=== PATIENT | female | born 1990 | race Caucasian/White ===

== ENCOUNTER → 2018-06-29 17:10 | Observation (INO) ==
--- NOTE | 2018-06-29 14:04 | OB/GYN History & Physical ---
Date of Encounter: 06/29/18 Time of Encounter: 13:56 Assessment and Plan (1) 30 weeks gestation of Current visit: Yes Status: Acute (2) Sepsis Current visit: Yes Status: Acute MFM at [facility] Dr. Marie consulted for possible transfer. Per MFM ok for transfer once BP's stable, echo complete, and cleared by medicine for transport. Pt is to get Vancomycin and Zosyn as soon as possible for possible sepsis. Pt now s/p 3 liters NS. Vancomycin in. Zosyn started. Echo normal. LE dopplers normal. Transfer to [facility] triage. POC per MFM, Dr. Harrison, and pulmonology. Qualifiers: Sepsis type: sepsis due to unspecified organism Qualified Code(s): A41.9 - Sepsis, unspecified organism (3) Polysubstance abuse Current visit: Yes Status: Acute (4) Tobacco abuse Current visit: Yes Status: Acute (5) Hepatitis C Current visit: Yes Status: Acute Qualifiers: Viral hepatitis chronicity: chronic Hepatic coma status: without hepatic coma Qualified Code(s): B18.2 - Chronic viral hepatitis C (6) uterine contractions in third trimester, antepartum Current visit: Yes Status: Acute Contractions every 3-4 minutes. SVE 1/70/-1 upon arrival. Repeat SVE x2 unchang ed. MFM at [facility] Dr. Marie consulted for possible transfer. Per MFM ok for transfer once BP's stable, echo complete, and cleared by medicine for transport. Pt is to get Vancomycin and Zosyn as soon as possible for possible sepsis. History of Present Illness Chief complaint: contractions HPI: Ms. Narvaez is a 27 year old female presenting at 30w6d with c/o contractions. She reports using heroin and methamphetamine last evening. Since that time she has had "cotton fever." She has been feeling feverish with shortness of breath, having shaking, and chest pressure, and inability to move her legs. This am she is also feeling dizzy and is having regular contractions. She denies leaking or bleeding. She reports a history of blood clots but is unsure if she has ever been on any anticoagulants. She does use tobacco as well. She states she has been unable to walk and therefore her girlfriend and her sister had to carry her to the car to come to the hospital. This is complicated by homelessness, hepatitis C, tobacco and polysubstance abuse. She reports she was trying to get in the baby centered recovery program but after her kicked her out of the house she did not have transportation to her appointments. The admits to trading sex for drugs in the past and she does not know who the father of this baby is. She denies any complications with her 2 full term pregnancies or deliveries. She had a 17 week SAB when she was in jail. She does report frequent UTI's in her previous pregnancies. 19 week Ultrasound: Single live male fetus. Position varied. Adequate fluid Post plac Bilat ov WNL AUA 19 W 2 D TASH 09/01/18 EFW 9 oz +FHR 147 No gross anomalies seen at this time. Initial labs: B positive Rubella and varicella immune Hepatitis C VL: [id number] HIV negative Treponema negative Hepatitis B negative Past Med Surg Social Fam HX - Past Medical History Medical history: hepatitis, liver disease (hepatitis C) - Family History Sister Adopted: [place]: Melanie Barker Age: 29 Family Member Ethnicity: Non- Living Status: Still Living Hx Family Cardiac Disorders: No Hx Family Respiratory Disorders: No Hx Family Cancer: No Hx Family GI Disorders: No Hx Family Genitourinary Disorders: No Hx Family Endocrine Disorder: No Hx Family Musculoskeletal Disorders: No Hx Family Neuromuscular Disorders: No Hx Family Neurologic Disorders: No Hx Family HEENT Disorders: No Hx Family Autoimmune Disorders: No Hx Family Reproductive Disorders: No Hx Family Psychosocial Disorders: No Hx Family Medical Disorders: No Obstetrical History - Pregnancies : 4 Para: 2 Term: 2 : 0 Ab's: 1 Livin Review of System OB All systems PM: reviewed and no additional remarkable complaints except as stated Exam - Constitutional Constitutional: well developed, well nourished, moderate distress, disheveled, other - Lungs Respiratory exam: CTAB - Cardiovascular Cardiovascular exam: RRR - Breasts Breast: bilateral: skin changes (multiple lesions from injecting in veins in breasts, no erythema or warmth) - Abdomen Abdomen: Present: gravid, non tender - Extremities Extremities exam: pedal edema (bilateral edema, multiple sores from injecting, areas of erythema around sores), radial pulses palpable and symmetrical Deep Tendon Reflex Grade: 1+ Diminished - Vulva Vulva: bilateral: normal - Vagina Vagina: Present: normal moisture - Cervix Dilation: 1 Effacement: 70 Station: -1 - Anus/Rectum Anus/Rectum: Present: normal perianal skin Results Result Diagrams: 06/29/18 13:35 06/29/18 13:35 All other labs normal. - VTE Reasons for not Prescribing Prophylaxis: Treatment not Indicated - Low risk for VTE
[2018-06-29 14:11] LABS: Bilirubin,Urine Small (Negative); Blood,Urine Negative (Negative); Clarity,Urine Cloudy (Clear); Color,Urine Dark Yellow (Yellow); Glucose,Urine (UA) Normal (Normal); Ketones,Urine Trace mg/dL (Negative); Leukocyte Esterase,Urine Negative (Negative); Nitrite,Urine Negative (Negative); Protein,Urine 30 mg/dL (Neg-Trace); Specific Gravity,Urine < 1.005 (1.010-1.025); Urobilinogen,Urine Normal (Normal)
[2018-06-29 14:13] LABS: Bacteria,Urine None Seen per hpf (None-Few); Hyaline Casts,Urine None Seen per lpf (None-Few); RBC,Urine 0-3 per hpf (0-3); Squamous Epithelial Cell,Urine Many per lpf (None-Few); WBC,Urine 0-3 per hpf (0-3)
[2018-06-29 14:15] LABS: ABG Base Excess -6 mEq/L (-2 to 3); ABG HCO3 17 mEq/L (21-27); ABG Oxygen Saturation 99 % (95-98); ABG PCO2 24 mmHg (35-45); ABG PH 7.47 pH Units (7.32-7.45); ABG PO2 110 mmHg (85-104); ABG TCO2 18 mEq/L (20-26)
[2018-06-29 14:20] LABS: INR 1.1; Prothrombin Time 12.3 Seconds (9.4-12.1)
[2018-06-29 14:22] LABS: Activated Partial Thrombo Time 33.3 Seconds (26.0-36.0)
[2018-06-29 14:32] LABS: Alanine Aminotransferase 10 Units/L (7-52); Albumin 2.6 g/dL (3.5-5.7); Albumin/Globulin Ratio 0.9 (1.1-2.2); Alkaline Phosphatase 126 Units/L (34-104); Aspartate Amino Transferase 20 Units/L (13-39); BUN/Creatinine Ratio 11 (6-26); Bilirubin,Direct 0.9 mg/dL (0.0-0.2); Bilirubin,Indirect 0.3 mg/dL (0.0-1.2); Bilirubin,Total 1.2 mg/dL (0.3-1.0); Blood Urea Nitrogen 7 mg/dL (6-20); Calcium 7.7 mg/dL (8.6-10.3); Carbon Dioxide 20 mEq/L (23-29); Chloride 104 mEq/L (98-107); Globulin 2.9 g/dL (2.4-3.5); Glucose 118 mg/dL (70-105); Magnesium 1.3 mg/dL (1.6-2.6); Osmolality,Calculated 279 (280-300); Phosphorous 1.7 mg/dL (2.7-4.5); Potassium 3.1 mEq/L (3.5-5.1); Sodium 135 mEq/L (136-145); Total Protein 5.5 g/dL (6.4-8.9); Troponin I < 0.03 ng/mL (< 0.04); eGFR For Non-African Americans > 60 (> 60)
[2018-06-29 14:39] LABS: Amphetamine Screen,Urine Positive ng/mL (Cutoff=1000); Barbiturate Screen,Urine Negative ng/mL (Cutoff=200); Benzodiazepines Screen,Urine Negative ng/mL (Cutoff=200); Cannabinoid Screen,Urine Negative ng/mL (Cutoff = 50); Cocaine Screen,Urine Negative ng/mL (Cutoff= 300); Opiate Screen,Urine Positive ng/mL (Cutoff=300); Phencyclidine Screen,Urine Negative ng/mL (Cutoff=25)
[2018-06-29 15:02] LABS: Basophils % 0.1 %; Mean Corpuscular Volume 89.1 fL (83.0-100.0)
[2018-06-29 15:31] LABS: Hematocrit 29.5 % (35.3-44.9); Hemoglobin 9.6 g/dL (11.5-15.4); Immature Granulocytes % 0.8 % (0-4); Lymphocytes # 0.3 K/mcL (0.6-4.6); Lymphocytes % 2.1 %; Mean Corpuscular HGB Conc 32.5 g/dL (31.6-35.5); Mean Platelet Volume 9.9 fL (9.4-12.4); Monocytes # 0.5 K/mcL (0.0-1.3); Monocytes % 3.4 %; Nucleated Red Blood Cells 0.2 /100 WBC (0); Platelet Count 202 K/mcL (140-400); Red Blood Count 3.31 M/mcL (3.82-4.97); Red Cell Distribution Width 13.4 % (11.5-14.5); Segmented Neutrophils % 93.6 %
--- NOTE | 2018-06-29 15:45 | Pulmonology Consult Note ---
<Chano Howard - Last Filed: 06/29/18 15:56> Date of Encounter: 06/29/18 Time of Encounter: 15:41 Assessment and Plan (1) Sepsis Status: Acute Sepsis, unknown source Presents with hypotension, subjective fever, WBC 14.9, Lactic acid 3.2 Possible sources include pneumonia, abscess, bacteremia in the setting of IVDU The patient does say that she shares and reuses needles She also has recent history of MRSA skin infections, however they appear to have resolved Blood cultures pending Hypotension appears responsive to fluids at this time Recommendations We will bolus one more liter LR, then start aggressive fluid resuscitation There are no obvious need for pressors or central venous access at this time so long as MAP >65 Continue Vancomycin and Zosyn pending blood cultures Repeat lactic acid within 6 hours Blood pressures appear to respond well to fluids at this time, the patient appears stable for transport to [facility] pending acceptance by OB for management of high risk and sepsis. She will need further sepsis workup, likely to include imaging of the spine which can be managed by OB upon transfer. Qualifiers: Sepsis type: sepsis due to unspecified organism Qualified Code(s): A41.9 - Sepsis, unspecified organism (2) 30 weeks gestation of Status: Acute Management per OB (3) Polysubstance abuse Status: Acute History of Polysubstance abuse including methamphetamines and heroin Patient states that she shares needles and reuses Likely source of sepsis (4) Hepatitis C Status: Acute Stable Qualifiers: Viral hepatitis chronicity: chronic Hepatic coma status: without hepatic coma Qualified Code(s): B18.2 - Chronic viral hepatitis C (5) Hypokalemia Status: Acute Recommend PO replacement with 40 mEq Potassium chloride (6) Hypomagnesemia Status: Acute Recommend IV replacement with 1g Mag Sulfate History of Present Illness Consult date: 06/29/18 Requesting physician: Paty Louise Reason for consult: other (sepsis) Chief complaint: Back pain and weakness History of present illness: Ms. Narvaez is a 27-year-old woman 30 week 6 day gravid woman who presents to [facility] labor and delivery department for complaints of low back pain, weakness in her legs, and frequent contractions for several hours duration. The patient does have history of IV drug use, with last use being last evening. The patient apparently woke up this morning experiencing elevated subjective fevers, confusion, severe back pain and stated that she was unable to walk. This is accordance to this refilled by her family. When I spoke with the patient she said that she was feeling confused, and that she did not feel that she could give a very good history. A good amount of her history is provided by her life partner who is in the room as well as her sister who is also present. The patient does apparently use IV drugs, and has a history of using methamphetamines and opiates. Recently, specifically about 1 month ago the patient did have a MRSA infection on her left leg and left breast tissue for which she was treated as an outpatient with antibiotics and the ulcerations did heal for the most part. In addition of this, the patient does complain of one month history of cough with production of dark sputum, which in the past day and a half has changed to a greenish sputum. According to her life partner, these symptoms primarily started approximately 6:30 AM today but progressed until about 12:30 PM at which point she was brought to the hospital. In addition of these symptoms, she said that she is having severe pain in her back and that she was unable to walk. She never extends anything like this before. Nothing seemed to make it any better or worse. There is no radiation of the pain. Since that time she has regained movement of her legs, however she says that she remains mildly confused. She has no other acute complaints at this time. Upon arrival to the labor and delivery unit, the patient was found to be hypotensive with BP 83/45, tachycardic at 116, and afebrile. She had a lactic acid initially of 3.2. She received 2L fluids and pulmonology was consulted for the management of sepsis. Past Med Surg Social Fam HX - Past Medical History Medical history: hepatitis, liver disease (hepatitis C) - Social History Smoking Status: Current every day smoker Packs per day: 1/2 ppd Smokeless Tobacco Status: No Alcohol use: none Drug use: opiates, methamphetamine, IV Drug Use - Family History Sister Adopted: [place]: Melanie Barker Age: 29 Family Member Ethnicity: Non- Living Status: Still Living Hx Family Cardiac Disorders: No Hx Family Respiratory Disorders: No Hx Family Cancer: No Hx Family GI Disorders: No Hx Family Genitourinary Disorders: No Hx Family Endocrine Disorder: No Hx Family Musculoskeletal Disorders: No Hx Family Neuromuscular Disorders: No Hx Family Neurologic Disorders: No Hx Family HEENT Disorders: No Hx Family Autoimmune Disorders: No Hx Family Reproductive Disorders: No Hx Family Psychosocial Disorders: No Hx Family Medical Disorders: No Medications and Allergies Allergy/AdvReac Type Severity Reaction Status Date / Time No Known Allergies Allergy Verified 06/29/18 16:41 All Systems: The remainder of the systems were reviewed and are negative Review of Systems: Constitutional: Denies weight loss. Admits to subjective fevers, generalized fatigue, chills Head/Neck: Denies LAN[place], neck stiffness EENT: Denies vision changes/blurriness, rhinorrhea, congestion, sore throat CVS: Denies chest pain, palpitations, GAMBOA, orthopnea, PND Pulm: Denies SOB, hemoptysis, wheezing. Admits to cough with dark sputum production GI: Denies abdominal pain, nausea, vomiting, diarrhea, constipation, melena, hematemasis : Denies dysuria, increased frequency, urgency, hematuria Heme: Denies ease of bleeding or bruising MSK: Denies joint pain, limited ROM Skin: Denies color changes. Admits to rashes and recent skin infection Neuro: Denies LAN[place]ORD, paresthesias, focal deficits. Admits to weakness and trouble moving legs Physical Examination Gen: Vitals noted. Patient appears mildly distressed. She claims to be mildly confused Eyes: anicteric sclerae, moist conjunctivae; no lid-lag; Pupils equal and reactive to light HENT: Atraumatic; oropharynx clear with moist mucous membranes and no mucosal ulcerations; normal hard and soft palate Neck: Trachea midline; supple, no thyromegaly or lymphadenopathy Cardiac: RRR, questionable faint 1/6 systolic ejection murmur, +S1/S2 Pulmonary: CTA bilaterally, no wheezes, rales or rhonchi, equal chest expansion Abdomen: Gravid patient MSK: ROM intact, no joint swelling noted Extremities: trace BLE edema, nontender calf, no cyanosis or clubbing Skin: Evidence of healed ulcers and infection scattered over all extremities. Healed track schmitz and fresh track schmitz. Neuro: moves all extremities, no focal deficits. Psych: Appropriate mood and behavior. A&Ox3, although she says that she feels disoriented Results - Laboratory Findings CBC and BMP: 06/29/18 13:35 06/29/18 13:35 ABG ABG pH 7.47 pH Units (7.32-7.45) H 06/29/18 14:12 ABG pCO2 24 mmHg (35-45) L 06/29/18 14:12 ABG pO2 110 mmHg (85-104) H 06/29/18 14:12 ABG O2 Saturation 99 % (95-98) H 06/29/18 14:12 PT/INR, D-dimer PT 12.3 Seconds (9.4-12.1) H 06/29/18 13:35 Abnormal lab findings: Abnormal lab results WBC 14.9 K/mcL (4.3-11.1) H 06/29/18 13:35 RBC 3.31 M/mcL (3.82-4.97) L 06/29/18 13:35 Hgb 9.6 g/dL (11.5-15.4) L 06/29/18 13:35 Hct 29.5 % (35.3-44.9) L 06/29/18 13:35 Neutrophils # 14.0 K/mcL (1.6-8.9) H 06/29/18 13:35 Lymphocytes # 0.3 K/mcL (0.6-4.6) L 06/29/18 13:35 Nucleated RBCs/100 WBC 0.2 /100 WBC (0) H 06/29/18 13:35 PT 12.3 Seconds (9.4-12.1) H 06/29/18 13:35 ABG pH 7.47 pH Units (7.32-7.45) H 06/29/18 14:12 ABG pCO2 24 mmHg (35-45) L 06/29/18 14:12 ABG pO2 110 mmHg (85-104) H 06/29/18 14:12 ABG HCO3 17 mEq/L (21-27) L 06/29/18 14:12 ABG Total CO2 18 mEq/L (20-26) L 06/29/18 14:12 ABG O2 Saturation 99 % (95-98) H 06/29/18 14:12 ABG Base Excess -6 mEq/L (-2 to 3) L 06/29/18 14:12 Sodium 135 mEq/L (136-145) L 06/29/18 13:35 Potassium 3.1 mEq/L (3.5-5.1) L 06/29/18 13:35 Carbon Dioxide 20 mEq/L (23-29) L 06/29/18 13:35 Glucose 118 mg/dL (70-105) H 06/29/18 13:35 Calculated Osmolality 279 (280-300) L 06/29/18 13:35 Lactic Acid 3.2 mmol/L (0.5-2.2) H 06/29/18 13:51 Calcium 7.7 mg/dL (8.6-10.3) L 06/29/18 13:35 Phosphorus 1.7 mg/dL (2.7-4.5) L 06/29/18 13:35 Magnesium 1.3 mg/dL (1.6-2.6) L 06/29/18 13:35 Total Bilirubin 1.2 mg/dL (0.3-1.0) H 06/29/18 13:35 Direct Bilirubin 0.9 mg/dL (0.0-0.2) H 06/29/18 13:35 Alkaline Phosphatase 126 Units/L (34-104) H 06/29/18 13:35 Serum Total Protein 5.5 g/dL (6.4-8.9) L 06/29/18 13:35 Albumin 2.6 g/dL (3.5-5.7) L 06/29/18 13:35 Albumin/Globulin Ratio 0.9 (1.1-2.2) L 06/29/18 13:35 Urine Clarity Cloudy (Clear) A 06/29/18 13:35 Ur Specific [place] < 1.005 (1.010-1.025) L 06/29/18 13:35 Urine Protein 30 mg/dL (Neg-Trace) H 06/29/18 13:35 Urine Ketones Trace mg/dL (Negative) H 06/29/18 13:35 Urine Bilirubin Small (Negative) H 06/29/18 13:35 Ur Squamous Epith Cells Many per lpf (None-Few) H 06/29/18 13:35 Urine Opiates Screen Positive ng/mL (Njajue=587) H 06/29/18 13:35 Ur Amphetamines Screen Positive ng/mL (Rfcluc=1934) H 06/29/18 13:35 Consult Discharge Plan - Plan Referrals: NONE,PCP [Primary Care Provider] - <Rancho Mayo - Last Filed: 06/30/18 16:10> Date of Encounter: 06/30/18 All Systems: The remainder of the systems were reviewed and are negative Results - Laboratory Findings CBC and BMP: 06/29/18 13:35 06/29/18 13:35 ABG ABG pH 7.47 pH Units (7.32-7.45) H 06/29/18 14:12 ABG pCO2 24 mmHg (35-45) L 06/29/18 14:12 ABG pO2 110 mmHg (85-104) H 06/29/18 14:12 ABG O2 Saturation 99 % (95-98) H 06/29/18 14:12 PT/INR, D-dimer PT 12.3 Seconds (9.4-12.1) H 06/29/18 13:35 Abnormal lab findings: Abnormal lab results WBC 14.9 K/mcL (4.3-11.1) H 06/29/18 13:35 RBC 3.31 M/mcL (3.82-4.97) L 06/29/18 13:35 Hgb 9.6 g/dL (11.5-15.4) L 06/29/18 13:35 Hct 29.5 % (35.3-44.9) L 06/29/18 13:35 Neutrophils # 14.0 K/mcL (1.6-8.9) H 06/29/18 13:35 Lymphocytes # 0.3 K/mcL (0.6-4.6) L 06/29/18 13:35 Nucleated RBCs/100 WBC 0.2 /100 WBC (0) H 06/29/18 13:35 PT 12.3 Seconds (9.4-12.1) H 06/29/18 13:35 ABG pH 7.47 pH Units (7.32-7.45) H 06/29/18 14:12 ABG pCO2 24 mmHg (35-45) L 06/29/18 14:12 ABG pO2 110 mmHg (85-104) H 06/29/18 14:12 ABG HCO3 17 mEq/L (21-27) L 06/29/18 14:12 ABG Total CO2 18 mEq/L (20-26) L 06/29/18 14:12 ABG O2 Saturation 99 % (95-98) H 06/29/18 14:12 ABG Base Excess -6 mEq/L (-2 to 3) L 06/29/18 14:12 Sodium 135 mEq/L (136-145) L 06/29/18 13:35 Potassium 3.1 mEq/L (3.5-5.1) L 06/29/18 13:35 Carbon Dioxide 20 mEq/L (23-29) L 06/29/18 13:35 Glucose 118 mg/dL (70-105) H 06/29/18 13:35 Calculated Osmolality 279 (280-300) L 06/29/18 13:35 Lactic Acid 3.2 mmol/L (0.5-2.2) H 06/29/18 13:51 Calcium 7.7 mg/dL (8.6-10.3) L 06/29/18 13:35 Phosphorus 1.7 mg/dL (2.7-4.5) L 06/29/18 13:35 Magnesium 1.3 mg/dL (1.6-2.6) L 06/29/18 13:35 Total Bilirubin 1.2 mg/dL (0.3-1.0) H 06/29/18 13:35 Direct Bilirubin 0.9 mg/dL (0.0-0.2) H 06/29/18 13:35 Alkaline Phosphatase 126 Units/L (34-104) H 06/29/18 13:35 Serum Total Protein 5.5 g/dL (6.4-8.9) L 06/29/18 13:35 Albumin 2.6 g/dL (3.5-5.7) L 06/29/18 13:35 Albumin/Globulin Ratio 0.9 (1.1-2.2) L 06/29/18 13:35 Urine Clarity Cloudy (Clear) A 06/29/18 13:35 Ur Specific [place] < 1.005 (1.010-1.025) L 06/29/18 13:35 Urine Protein 30 mg/dL (Neg-Trace) H 06/29/18 13:35 Urine Ketones Trace mg/dL (Negative) H 06/29/18 13:35 Urine Bilirubin Small (Negative) H 06/29/18 13:35 Ur Squamous Epith Cells Many per lpf (None-Few) H 06/29/18 13:35 Urine Opiates Screen Positive ng/mL (Gkxgrr=389) H 06/29/18 13:35 Ur Amphetamines Screen Positive ng/mL (Receyj=3828) H 06/29/18 13:35 - Microbiology Findings Microbiology Findings: Microbiology, Last 48 Hours 06/29/18 13:42 Blood Culture - Preliminary Peripheral Venipuncture Culture is incubating and being continuously monitored for growth. Final report to follow. 06/29/18 13:50 Blood Culture - Preliminary Peripheral Venipuncture Culture is incubating and being continuously monitored for growth. Final report to follow. - Attending Attestation I examined this patient and my medical decision-making was reviewed with the Resident Physician. I agree with the documented findings, disposition and treatment plan as described except to the extent set forth below. Patient seen and examined. I have seen and evaluated patient in the OB department Labs, radiology, chart personally reviewed. Agree with resident's history and physical, assessment, plan with following comments: LENS EDGER: Patient follows commands, however she is very lethargic. There is no neurological deficit and she is intact to touch and sensation in her lower extremities and upper extremities. Pulmonary: Acceptable oxygenation and ventilation Cardiovascular: Hypotensive and concern of septic shock. Source is not clear however she is high risk with using IV drug abuse. There is concern of endocarditis and also septicemia. Patient is and blood pressure needs to be stabilized because of the perfusion to the fetus with low blood pressure. GI: Nutrition per dietary and GI prophylaxis per routine Heme: DVT prophylaxis per routine ID: Continue antibiotics and plan to de-escalation. Patient with evidence of lactic acidosis and I have reviewed her ABG with evidence of respiratory alkalosis which can be found in , however there is metabolic acidosis involved and this is concerning. IV fluid bolus was recommended and obviously if she does not respond then she will need vasopressors. Renal; urine out put and renal funtion reviewed Endorcine: blood glucose is monitored Lines: all lines checked and no evidence of infections Skin: skin care to prevent pressure ulcers per nursing routine care Discussed with the nurse and patient was being monitored closely and also monitoring and there is response to fluid that this time and overall patient has severe sepsis picture which could be serious and her condition as a woman and she would need a workup to make sure there is no endocarditis or even abscess due to her IV drug abuse. Patient was transferred to [facility]. I spent 40 min of Critical Care time with this patient. It involved decision making of high complexity to assess, manipulate, and support vital organ system failure and/or to prevent further life threatening deterioration of the patient's condition. The time involved in the performance of separately reportable procedures was not counted toward critical care time.
[~2018-06-29 17:10] MED LIST: 0.9 % Sodium Chloride 1,000 ML IVC SCH; Lidocaine -MPF 2% 5 ML VIAL ONE; Piperacillin/Tazobactam 3.375 GM in 0.9 % Sodium Chloride Mini Bag 100 ML IVPB SCH; Ringers Solution, Lactated 1,000 ML IVC ONE; Ringers Solution, Lactated 1,000 ML IVC SCH; Ringers Solution, Lactated 1,000 ML ONE
--- NOTE | 2018-06-29 17:43 | Event Note ---
Date of Encounter: 06/29/18 Time of Encounter: 17:10 While pt awaiting transport BRANDY notified by RN that pt is no longer in her room. Becky raman called. Pt located outside the unit on the sidewalk. She states she is leaving. IV noted still in patient's hand. Security called. Dr. Harrison called for possible medical hold. Pt removes IV from hand and is bleeding. She states she is leaving since we are sending her to [facility] anyway. I urged her to reconsider since she likely has a sever infection that could kill her and her baby. I also informed her that she could deliver her very baby outside the hospital which could cause her baby to . I told her that I am concerned that she will use again and that we would like to get her to [facility] to monitor her baby and continue her antibiotics and fluids. She states her family can just take her to [facility]. I explained that we were going to put her on a heart monitor and continue antibiotic and fluid while she is in the ambulance. The patient then got in her personal vehicle and leaves with her girlfriend, sister, and brother.
--- NOTE | 2018-06-30 09:49 | Electrocardiograph Report ---
[address] [place], [place] [address] Test Date: 2018-06-29 Pat Name: Nathalia Aritabrook Department: 101 Room: 08 Gender: F Edge Kitter: MERY : 1990 Requested By: [id number] Order Number: [id number] Reading MD: Cecy Pardo Measurements Intervals Staples Rate: 109 P: 15 IN: 134 QRS: 70 QRSD: 93 T: 28 QT: 313 QTc: 377 Interpretive Statements SINUS TACHYCARDIA MINIMAL ST DEPRESSION ABNORMAL RHYTHM ECG Electronically Signed On 06-30-2018 9:47:55 EST by Cecy Pardo
== END | disposition left against medical advice (07) ==
LOC: 1NENULAB
PROVIDERS: ADMIT Registered Nurse; ATTEND Registered Nurse